=== PATIENT | female | born 1940 | race Caucasian/White ===

== ENCOUNTER → 2017-03-17 | Outpatient (CLI) | payer MEDICARE ==
[~2017-03-17] MED LIST: AMLO10TA PO; AMLO1TAB PO; AMLO5TAB2 PO; ASP325TEC PO; ASP81CT PO; ASP81TEC PO; ASPI-892 PO; ATOR40TA PO; BCL10T GT; CADUET; CEPH500C PO; CETI5TAB25 PO; CLN.1T PO; CLOP75TA PO; CYCL5TAB PO; EZET10TA5 PO; FAMO20TA5 PO; FEXO-14 PO; FEXO180T84 PO; FEXO60TA PO; FURO20TA4 PO; GABA-486 PO; HYDR-2890 PO; HYDR-3876 PO; ISM30TCR PO; METO-333 PO; METO50TA2 PO; MTP25TSR; MTP25TSR PO; NITR0.4T SL; OMEP20CA6 PO; PANT20TA2 PO; PNT40TEC PO; POTA10CA43 PO; RAMI10TA PO; SCOP1PAT TD; SIMV20TA3 PO; SPIR25TA3 PO; VNL37.5T PO; VNL75CCR PO; ZLP5T PO
--- NOTE | 2017-03-17 11:49 | Diagnostic Imaging Report ---
INDICATION: 10 days productive cough. Exam compared to 11/29/2011. The heart size stable. There is some prominence of the central pulmonary vascularity similar to the previous exam. There is some prominence of the perihilar interstitial lung markings however more pronounced. No mary alveolar consolidation. No effusion or pneumothorax. Pacemaker device and post sternotomy stable. IMPRESSION: Upper limits heart size and prominence of the vascularity, similar to the prior. Perihilar interstitial lung markings and airway thickening have increased and may reflect a reactive airway disease or bronchitis or other interstitial inflammatory process. No effusion, pneumothorax or alveolar consolidation. Dictated by: Dictated on workstation # [id number]
== END ==
LOC: RAD 11:10
PROVIDERS: ATTEND Family Medicine
DX: R91.8 Other nonspecific abnormal finding of lung field (principal)
CPT/HCPCS: 71020

== ENCOUNTER → 2017-04-01 | Outpatient (CLI) | payer MEDICARE ==
--- NOTE | 2017-04-02 12:11 | Diagnostic Imaging Report ---
Bilateral screening mammogram 2D views with tomosynthesis. The current study was also evaluated with a Computer Aided Detection (CAD) system. INDICATION: Screening. No current complaints stated on the questionnaire. COMPARISON: 12/11/15 FINDINGS: The breasts are composed of heterogeneously dense parenchyma which may decrease mammographic sensitivity. Pacemaker projecting over the left axillary region is seen. Numerous benign-appearing calcifications are noted. Allowing for technique and positional differences, no suspicious change is seen. IMPRESSION: Dense breasts with no definite change. ACR BI-RADS Category 2: Benign findings. Result letter will be mailed to the patient. Note: At least 10% of breast cancer is not imaged by mammography. Dictated by: Dictated on workstation # [id number]
== END ==
LOC: RAD 10:53
PROVIDERS: ATTEND Nurse Practitioner Family
DX: Z12.31 Encounter for screening mammogram for malignant neoplasm of breast (principal)

== ENCOUNTER → 2017-04-16 | Outpatient (CLI) | payer MEDICARE ==
--- NOTE | 2017-04-16 10:57 | Diagnostic Imaging Report ---
INDICATION: SHORTNESS OF BREATH COMPARISON: 03/17/2017 FINDINGS: Frontal and lateral views of the chest demonstrate normal heart size and pulmonary vascularity. The lungs are clear. There are no signs of infiltrate, pleural effusions or pneumothoraces. The visualized osseous structures show no acute abnormalities. Sternotomy wires and left-sided dual-lead pacemaker is noted. IMPRESSION: 1. No acute process. No signs of infiltrates, effusions or pneumothoraces. Dictated by: Dictated on workstation # [id number]
== END ==
LOC: RAD 09:57
PROVIDERS: ATTEND Nurse Practitioner Family
DX: R06.02 Shortness of breath (principal)
CPT/HCPCS: 71020

== ENCOUNTER → 2017-04-16 | Outpatient (CLI) | payer MEDICARE ==
[2017-04-16 09:16] LABS: MEAN PLATELET VOLUME 10.3 FL (7.4-10.4); RED BLOOD COUNT 4.66 10^6/uL (4.35-5.85); RED CELL DISTRIBUTION WIDTH 16.4 % (10.0-14.5); WHITE BLOOD COUNT 5.9 10^3/uL (4.3-11.0)
[2017-04-16 09:41] LABS: ALBUMIN 3.9 GM/DL (3.2-4.5); BILIRUBIN,TOTAL 0.8 MG/DL (0.1-1.0); CALCIUM 9.5 MG/DL (8.5-10.1); CREATININE SERUM 0.93 MG/DL (0.60-1.30); MAGNESIUM 1.9 MG/DL (1.8-2.4); POTASSIUM 3.7 MMOL/L (3.6-5.0); TOTAL PROTEIN 7.2 GM/DL (6.4-8.2)
[2017-04-16 10:00] LABS: THYROID STIMULATING HORMONE 1.45 UIU/ML (0.35-4.94)
== END ==
LOC: CARD 08:34
PROVIDERS: ATTEND Internal Medicine Cardiovascular Disease
DX: I10 Essential (primary) hypertension (principal); I44.2 Atrioventricular block, complete; R06.02 Shortness of breath; I97.190 Other postprocedural cardiac functional disturbances following cardiac surgery; Z88.2 Allergy status to sulfonamides
CPT/HCPCS: 36415; 80053; 83735; 84443; 85027; 93306

== ENCOUNTER → 2017-05-26 | Outpatient (CLI) | payer MEDICARE ==
[~2017-05-26] MED LIST changes: +CATHETER FLUSH 10 ML SYR IV PRN; +IOHEXOL 350 MG/ML 150 ML (OMNIPAQUE 350) VIAL IV ONE
[2017-05-26 11:01] LABS: CREATININE SERUM 0.96 MG/DL (0.60-1.30)
--- NOTE | 2017-05-26 11:54 | Diagnostic Imaging Report ---
INDICATION: Shortness of breath and bilateral leg pain. TECHNIQUE: Grayscale, color flow, and Duplex Doppler evaluation of the bilateral lower extremity deep venous systems was performed. FINDINGS: There is no evidence of right or left lower extremity DVT. Both lower extremity deep venous systems show normal compressibility with normal response to augmentation and Valsalva. No fluid collection or mass is detected. IMPRESSION: No evidence of right or left lower extremity DVT. Dictated by: Dictated on workstation # [id number]
--- NOTE | 2017-05-26 12:27 | Diagnostic Imaging Report ---
PROCEDURE: CT angiography of the chest with contrast. TECHNIQUE: Multiple contiguous axial images were obtained through the chest after uneventful bolus administration of intravenous contrast. Reconstructed CTA MIP acquisitions were also performed. INDICATION: Shortness of air for three months. No prior studies are available for comparison. Evaluation of the pulmonary arterial system is without evidence of thromboembolism. The central, lobar and subsegmental pulmonary arterial branches are without evidence of a filling defect. There is some ectasia of the ascending thoracic aorta measuring 4.2 cm AP x 3.9 cm transverse. No dissection is identified. The heart does appear enlarged. No pericardial or pleural fluid is identified. No axillary lymphadenopathy is seen. No hilar lymphadenopathy is identified. Small mediastinal lymph nodes are present. A left chest wall cardiac pacemaker is noted. No infiltrates, nodules or masses are detected. The upper abdomen is unremarkable. IMPRESSION: No evidence of pulmonary embolism. Dictated by: Dictated on workstation # [id number]
== END ==
LOC: RAD 09:51
PROVIDERS: ATTEND Nurse Practitioner Family
DX: R06.00 Dyspnea, unspecified (principal); M79.606 Pain in leg, unspecified
CPT/HCPCS: 36415; 71275; 82565; 84520; 93970

== ENCOUNTER → 2017-06-01 | Outpatient (CLI) | payer MEDICARE ==
[~2017-06-01] MED LIST changes: -CATHETER FLUSH 10 ML SYR IV PRN; -IOHEXOL 350 MG/ML 150 ML (OMNIPAQUE 350) VIAL IV ONE
--- NOTE | 2017-06-01 14:43 | Diagnostic Imaging Report ---
PROCEDURE: CT abdomen and pelvis without contrast. TECHNIQUE: Multiple contiguous axial images were obtained through the abdomen and pelvis without the use of intravenous contrast. INDICATION: Hematuria. FINDINGS: The previous CT abdomen/pelvis exam performed on 07/29/10 noted a 2.1 x 2.4 cm cyst along the superior pole of the right kidney. That suspected cyst now measures 2.4 x 3.0 cm. The kidneys are otherwise unremarkable. There is no sign of nephrolithiasis or urolithiasis and the kidneys do not seem to be obstructed. The urinary bladder is only partially filled and consequently difficult to assess. There is no obvious bladder abnormality evident. The uterus is surgically absent. There is no pelvic mass or free fluid collection noted. The appendix was visualized and is not abnormally thickened. The liver, spleen, pancreas, adrenals, gallbladder, aorta and inferior vena cava show no sign of an acute abnormality. The stomach is not well distended and consequently difficult to assess. The lung bases are clear. There is no obvious breast mass. The bone windows show no sign of a fracture or of a destructive lesion. There is degenerative disc and bony disease throughout the lower thoracic and lumbar spine. IMPRESSION: 1. There is no acute abnormality of the abdomen or pelvis. In particular, there is no abnormality to account for the patient's hematuria. 2. The suspected cyst along the lateral aspect of the superior pole of the right kidney does measure somewhat larger than on the prior study. This suspected cyst still has a generally benign appearance. Even so, ultrasound would be recommended for further evaluation.. Dictated by: Dictated on workstation # [id number]
== END ==
LOC: RAD 11:26
PROVIDERS: ATTEND Urology
DX: R31.9 Hematuria, unspecified (principal); Z90.710 Acquired absence of both cervix and uterus
CPT/HCPCS: 74176

== ENCOUNTER 2017-06-08 19:51 | Outpatient (CLI) | payer MEDICARE | END 2017-06-09 06:15 | disposition home or self-care (01) | LOC: SLEEP 19:51 | PROVIDERS: ATTEND Nurse Practitioner Family | DX: G47.10 Hypersomnia, unspecified (principal); R06.83 Snoring; I10 Essential (primary) hypertension; Z95.0 Presence of cardiac pacemaker | CPT/HCPCS: 95810 ==

== ENCOUNTER → 2017-06-15 | Outpatient (CLI) | payer MEDICARE ==
[~2017-06-15] MED LIST changes: +RT-ALBUTEROL SULF 2.5 MG/3 ML PRE-MIX VIAL INH ONE
== END ==
LOC: RT 07:33
PROVIDERS: ATTEND Nurse Practitioner Family
DX: R06.00 Dyspnea, unspecified (principal); J30.2 Other seasonal allergic rhinitis
CPT/HCPCS: 94060; 94726; 94729

== ENCOUNTER → 2017-06-23 | Outpatient (CLI) | payer MEDICARE ==
[~2017-06-23] MED LIST changes: -RT-ALBUTEROL SULF 2.5 MG/3 ML PRE-MIX VIAL INH ONE
== END ==
LOC: PULM 10:35
PROVIDERS: ATTEND Nurse Practitioner Family
DX: R06.00 Dyspnea, unspecified (principal); M79.606 Pain in leg, unspecified

== ENCOUNTER → 2017-08-12 | Outpatient (CLI) | payer MEDICARE ==
--- NOTE | 2017-08-12 14:03 | Diagnostic Imaging Report ---
CLINICAL INDICATION: Patient with 4 nosebleeds in last 2 months and patient is seeing spots, coughing up blood yesterday and several sinus infections. EXAM: Axial maxillofacial CT scan performed without IV contrast with coronal reformations. COMPARISON: None. FINDINGS: PARANASAL SINUSES: FRONTAL: Unremarkable. ETHMOID: Unremarkable. MAXILLARY: Unremarkable. SPHENOID: Unremarkable. OTHER PARANASAL SINUS FINDINGS: There is max bullosa of both middle nasal turbinates (right side more than the left). The bilateral ostiomeatal unit regions are patent. NASAL SEPTUM: Relatively midline. No significant bony spurs. VISUALIZED TEMPORAL BONE STRUCTURES: Unremarkable. BONY STRUCTURES: Unremarkable. EXTRACRANIAL SOFT TISSUE/ ORBITS: Unremarkable. IMPRESSION: 1: There is no significant paranasal sinus disease. 2: There is max bullosa of both middle nasal turbinates. Dictated by: Dictated on workstation # [id number]
== END ==
LOC: RAD 13:21
PROVIDERS: ATTEND Family Medicine
DX: J34.89 Other specified disorders of nose and nasal sinuses (principal); J32.9 Chronic sinusitis, unspecified; R04.0 Epistaxis; R04.2 Hemoptysis
CPT/HCPCS: 70486

== ENCOUNTER 2017-12-08 09:00 | Outpatient (RCR) | payer MEDICARE ==
[2017-10-20 09:00] VITALS: BP 140/70
[2017-10-20 10:20] VITALS: BP 146/68
[2017-10-22 09:17] VITALS: BP 119/70
[2017-10-22 09:50] VITALS: BP 120/75
[2017-10-27 09:00] VITALS: BP 114/70
[2017-10-27 10:00] VITALS: BP 120/60
[2017-10-29 09:00] VITALS: BP 125/40
[2017-10-29 09:50] VITALS: BP 128/50
[2017-11-03 08:55] VITALS: BP 120/50
[2017-11-10 09:00] VITALS: BP 130/76
[2017-11-10 10:00] VITALS: BP 121/50
[2017-11-12 09:00] VITALS: BP 122/70
[2017-11-12 10:00] VITALS: BP 130/70
[2017-11-17 09:00] VITALS: BP 125/122
[2017-11-17 10:00] VITALS: BP 122/40
[2017-11-19 08:57] VITALS: BP 150/160
[2017-11-19 09:00] VITALS: BP 150/60
[2017-11-24 09:00] VITALS: BP 138/60
[2017-11-24 09:53] VITALS: BP 110/50
[2017-11-26 09:00] VITALS: BP 142/50
[2017-11-26 10:00] VITALS: BP 145/70
[2017-12-03 08:58] VITALS: BP 122/70
[2017-12-03 09:00] VITALS: BP 122/70
[2017-12-03 10:00] VITALS: BP 116/70
[2017-12-08 09:00] VITALS: BP 100/70
[2017-12-08 10:00] VITALS: BP 125/80
== END 2018-01-20 | disposition home or self-care (01) ==
LOC: PULM 09:00
PROVIDERS: ATTEND Nurse Practitioner Family
DX: J98.4 Other disorders of lung (principal)

== ENCOUNTER → 2019-04-04 | Outpatient (CLI) | payer MEDICARE ==
--- NOTE | 2019-04-04 10:38 | Diagnostic Imaging Report ---
INDICATION: Screening. TECHNIQUE: The current study was also evaluated with a Computer Aided Detection (CAD) system. 3D Tomographic imaging was also performed. COMPARISON: 04/01/2017, 12/11/2015, 05/18/2015, and 11/14/2013. FINDINGS: The fibroglandular tissue is heterogeneously dense bilaterally. There are scattered benign type calcifications. There is no dominant mass, spiculated lesion, or suspicious calcification identified. The skin, nipples, and axillae are unremarkable. IMPRESSION: Benign findings. ACR BI-RADS Category 2: Benign findings. Result letter will be mailed to the patient. Note: At least 10% of breast cancer is not imaged by mammography. Dictated by: Dictated on workstation # [id number]
== END ==
LOC: RAD 08:15
PROVIDERS: ATTEND Family Medicine
DX: Z12.31 Encounter for screening mammogram for malignant neoplasm of breast (principal)
CPT/HCPCS: 77067

== ENCOUNTER → 2019-10-06 | Outpatient (CLI) | payer MEDICARE ==
--- NOTE | 2019-10-06 17:57 | Diagnostic Imaging Report ---
INDICATION: Palpable lump right breast. CORRELATION is made with prior mammograms from 04/04/2019 and 04/01/2017. TECHNIQUE: Unilateral right 2-D and 3-D diagnostic mammography was performed with CAD. FINDINGS: Right breast is heterogeneously dense, limiting the sensitivity of mammography. A BB marker was placed at the area of palpable abnormality in the upper and slightly inner right breast. Dense tissue is identified at this location. No discrete mass is identified. There are benign calcifications. No malignant appearing microcalcifications are seen. The right axilla is unremarkable. IMPRESSION: BI-RADS 0 There is dense tissue at the area of palpable abnormality in the upper right breast without discrete mass. Interrogation of this area with ultrasound is recommended and will be performed today. ACR BI-RADS Category 0: Incomplete. (Needs additional imaging evaluation). Result letter will be mailed to the patient. Note: At least 10% of breast cancer is not imaged by mammography. Dictated by: Dictated on workstation # [id number]
--- NOTE | 2019-10-06 18:04 | Diagnostic Imaging Report ---
INDICATION: Palpable lump right breast. CORRELATION is made with diagnostic mammogram earlier the same day. Sonographic interrogation of the area of palpable abnormality right breast was performed. There is a hypoechoic somewhat ill-defined solid appearing mass at the 12:30 location of the right breast, 5 cm from the nipple. This measures 1.9 x 1.2 x 1.9 cm. No significant internal vascularity is seen. There is some vascularity along the margins. Evaluation of the right axilla shows no abnormally enlarged lymph nodes. IMPRESSION: Hypoechoic solid appearing mass 12:30 location right breast, 5 cm from the nipple. This corresponds to the area of palpable abnormality. Features are concerning for a breast neoplasm and tissue sampling is recommended. This would be amenable to ultrasound-guided core biopsy. BI-RADS Category 4 ACR BI-RADS Category 4: Suspicious abnormality. Result letter will be mailed to the patient. Note: At least 10% of breast cancer is not imaged by mammography. Dictated by: Dictated on workstation # [id number]
== END ==
LOC: RAD 13:10
PROVIDERS: ATTEND Nurse Practitioner Family
DX: N63.10 Unspecified lump in the right breast, unspecified quadrant (principal)
CPT/HCPCS: 76642; 77065; G0279

== ENCOUNTER → 2019-11-04 | Outpatient (CLI) | payer MEDICARE ==
[2019-11-04 18:13] LABS: BASOPHILS % (AUTO) 0 % (0-10); EOSINOPHILS # (AUTO) 0.1 10^3/uL (0.0-0.3); EOSINOPHILS % (AUTO) 1 % (0-10); HEMATOCRIT 41 % (35-52); HEMOGLOBIN 13.3 G/DL (11.5-16.0); LYMPHOCYTES # (AUTO) 3.2 X 10^3 (1.0-4.0); LYMPHOCYTES % (AUTO) 34 % (12-44); MEAN CORPUSCULAR HEMOGLOBIN 29 PG (25-34); MEAN CORPUSCULAR HGB CONC 33 G/DL (32-36); MEAN CORPUSCULAR VOLUME 89 FL (80-99); MEAN PLATELET VOLUME 11.4 FL (7.4-10.4); MONOCYTES # (AUTO) 0.6 X 10^3 (0.0-1.0); MONOCYTES % (AUTO) 7 % (0-12); NEUTROPHILS # (AUTO) 5.6 X 10^3 (1.8-7.8); NEUTROPHILS % (AUTO) 58 % (42-75); PLATELET COUNT 251 10^3/uL (130-400); RED CELL DISTRIBUTION WIDTH 14.5 % (10.0-14.5); WHITE BLOOD COUNT 9.5 10^3/uL (4.3-11.0)
[2019-11-04 18:17] LABS: ALBUMIN 3.9 GM/DL (3.2-4.5); POTASSIUM 3.8 MMOL/L (3.6-5.0)
[2019-11-04 18:19] LABS: TOTAL PROTEIN 6.9 GM/DL (6.4-8.2)
[2019-11-04 18:21] LABS: BILIRUBIN,TOTAL 0.3 MG/DL (0.1-1.0)
[2019-11-04 18:23] LABS: CREATININE SERUM 1.13 MG/DL (0.60-1.30)
== END ==
LOC: LAB 17:12
DX: Z11.59 Encounter for screening for other viral diseases (principal); C50.911 Malignant neoplasm of unspecified site of right female breast; Z20.828 Contact with and (suspected) exposure to other viral communicable diseases
CPT/HCPCS: 80053; 85025; U0002; 36415; 87635

== ENCOUNTER → 2019-11-24 | Outpatient (CLI) | payer MEDICARE | LOC: LABNPT 08:13 | PROVIDERS: ATTEND Internal Medicine Medical Oncology | DX: Z20.828 Contact with and (suspected) exposure to other viral communicable diseases (principal) | CPT/HCPCS: 87635 ==

== ENCOUNTER → 2019-12-16 | Outpatient (CLI) | payer MEDICARE | LOC: LABNPT 07:54 | PROVIDERS: ATTEND Internal Medicine Medical Oncology | DX: Z11.59 Encounter for screening for other viral diseases (principal); Z20.828 Contact with and (suspected) exposure to other viral communicable diseases | CPT/HCPCS: 87635 ==

== ENCOUNTER → 2020-01-06 | Outpatient (CLI) | payer MEDICARE | LOC: LABNPT 07:50 | PROVIDERS: ATTEND Internal Medicine Medical Oncology | DX: Z20.828 Contact with and (suspected) exposure to other viral communicable diseases (principal) | CPT/HCPCS: 87635 ==

== ENCOUNTER → 2020-02-03 | Outpatient (CLI) | payer MEDICARE | LOC: LABNPT 08:47 | PROVIDERS: ATTEND Family Medicine | DX: Z11.59 Encounter for screening for other viral diseases (principal) | CPT/HCPCS: 87635 ==

== ENCOUNTER → 2021-06-14 11:51 | Day surgery (SDC) | payer MEDICARE ==
--- NOTE | 2019-10-13 10:29 | Diagnostic Imaging Report ---
INDICATION: Right breast mass. Patient is status post right breast biopsy. A unilateral right 2D mammography was performed after the patient underwent right breast ultrasound biopsy. Correlation is made with recent screening and diagnostic study from 10/06/2019. A marker clip in the upper slightly inner right breast is noted, status post biopsy. There are scattered benign calcifications. IMPRESSION: 1. Clip is identified within the area of density noted on diagnostic mammography in the upper and slightly inner right breast. Pathology results are currently pending. Dictated by: Dictated on workstation # [id number]
--- NOTE | 2019-10-13 11:23 | Diagnostic Imaging Report ---
INDICATION: Right breast mass. Patient presents for ultrasound-guided biopsy. Patient was brought to the procedure room, placed on table in the supine position. Ultrasound imaging of the right breast was performed to evaluate appropriate entry site. The right breast was then prepped and draped in the usual sterile fashion. Small amount of 1% lidocaine was utilized for local anesthesia. A total of 3 core biopsies were obtained of the hypoechoic mass at the 12:30 location of the right breast, 5 cm from the nipple. A 14-gauge Achieve needle was utilized. A marker clip was then deployed within the lesion. Hemostasis was obtained using manual compression. Patient tolerated the procedure well and left the Department in stable condition. IMPRESSION: Successful ultrasound-guided core biopsy hypoechoic mass right breast 12:30 location. Pathology results are currently pending. Dictated by: Dictated on workstation # [id number]
[~2021-06-14] VITALS: Ht 154.9 cm; Wt 70.9 kg
[~2021-06-14 11:51] MED LIST changes: +LIDOCAINE 1% INJ 20 ML VIAL INJ ONE; +LIDOCAINE 1% INJ 20 ML VIAL ONE
== END | disposition home or self-care (01) ==
LOC: RAD 10-13 08:33
PROVIDERS: ATTEND Nurse Practitioner Family
DX: C50.211 Malignant neoplasm of upper-inner quadrant of right female breast (principal)
CPT/HCPCS: 19083; 77065; 88305; 88360; G0279

== ENCOUNTER 2021-10-30 10:59 | Emergency (ER) | payer MEDICARE ==
[~2021-10-30] VITALS: Ht 152 cm; Wt 72.0 kg
[~2021-10-30 10:59] MED LIST changes: -LIDOCAINE 1% INJ 20 ML VIAL INJ ONE; -LIDOCAINE 1% INJ 20 ML VIAL ONE
--- NOTE | 2021-10-30 11:14 | ED Chest Pain ---
General Chief Complaint: Chest Pain Stated Complaint: DIZZINESS Source: patient Exam Limitations: no limitations History of Present Illness Date Seen by Provider: Oct 30, 2021 Time Seen by Provider: 11:14 Allergies and Home Medications Allergies Coded Allergies: Sulfa (Sulfonamide Antibiotics) (Verified Allergy, Mild, 07/17/15) Patient Home Medication List Amlodipine Besylate (Amlodipine Besylate) 10 Mg Tablet, 10 MG PO DAILY, (Reported) Entered as Reported by: JOSELUIS VILLARREAL on 10/22/14 0949 Aspirin (Aspirin Ec Tab) 81 Mg Tabec, 81 MG PO DAILY, (Reported) Entered as Reported by: JESSICA HORNE on 10/23/14 0840 Atorvastatin Calcium (Lipitor) 40 Mg Tablet, 40 MG PO HS, (Reported) Entered as Reported by: MELVINA COSTELLO on 10/22/14 0530 Baclofen (Lioresal Tablet) 10 Mg Tab, 10 MG GT TID PRN for SPASMS Prescribed by: BETHANY VENEGAS on 11/13/14 1214 Cyclobenzaprine Hcl (Cyclobenzaprine Hcl) 5 Mg Tablet, 5 MG PO BID, (Reported) Entered as Reported by: KASI SALAMANCA on 09/28/08 1742 Fexofenadine Hcl (Neva Allergy) 180 Mg Tablet, 180 MG PO DAILY, (Reported) Entered as Reported by: JOSELUIS VILLARREAL on 10/22/14 0953 Furosemide (Furosemide) 20 Mg Tablet, 20 MG PO DAILY, (Reported) Entered as Reported by: JESSICA BAJWA on 09/28/08 1729 Gabapentin (Gabapentin) 100 Mg Capsule, 100 MG PO TID, (Reported) Entered as Reported by: MELVINA COSTELLO on 10/22/14 0530 Hydrocodone/Acetaminophen (Lorcet Hd 10-325 mg Tablet) 1 Each Tablet, 1 TAB PO Q4H Prescribed by: BETHANY VENEGAS on 11/13/14 1214 Metoprolol Tartrate (Metoprolol Tartrate) 50 Mg Tablet, 50 MG PO BID, (Reported) Entered as Reported by: JOSELUIS VILLARREAL on 10/22/14 0957 Nitroglycerin (Nitroquick) 0.4 Mg Tab.subl, 0.4 MG SL UD PRN for CHEST PAIN, (Reported) Entered as Reported by: JESSICA HORNE on 10/23/14 0900 Pantoprazole Sod (Protonix Tab) 40 Mg Tab, 40 MG PO DAILY, (Reported) Entered as Reported by: MICHELLE MARIN on 11/16/11 0816 Ramipril (Altace) 10 Mg Tablet, 10 MG PO HS, (Reported) Entered as Reported by: JESSICA BAJWA on 09/28/08 1727 Spironolactone (Spironolactone) 25 Mg Tablet, 25 MG PO DAILY, (Reported) Entered as Reported by: JOSELUIS VILLARREAL on 10/22/14 1000 Venlafaxine Hcl (Effexor) 37.5 Mg Tablet, 37.5 MG PO BID, (Reported) Entered as Reported by: KALLIE ORTIZ on 08/08/10 2340 Past Gqyeaoy-Onkvmc-Gxnpzf Hx Immunizations Up To Date Tetanus Booster (TDap): Unknown Past Medical History Hysterectomy, Open Heart Surgery Reproductive Disorders: No Female Reproductive Disorders: Denies Hiatal Hernia, Irritable Bowel Degenerate Disk Disease, Arthritis, Fibromyalgia, Chronic Back Pain Cataract Loss of Vision: Denies Hearing Impairment: Denies Skin, Melanoma, Oral Anxiety, Depression Family Medical History CABG 19 FATHER, G8 BROTHER G8 SISTER G8 SISTER, Cardiovascular disease 19 FATHER, G8 SISTER, , Onset:Unknown FH: back pain 19 FATHER, 19 MOTHER, G8 BROTHER G8 SISTER FH: brain tumor G8 SISTER, FH: chronic pain FH: melanoma G8 BROTHER G8 SISTER FH: scoliosis 19 MOTHER, FHx: liver disease 19 MOTHER, Hypertension 19 FATHER, Myocardial infarction SON, Physical Exam Vital Signs Vital Signs - First Documented 10/30/21 11:03 Pulse 68 Resp 18 B/P (MAP) 144/82 (102) Pulse Ox 99 Capillary Refill : Height, Weight, BMI Height: 5'2.00" Weight: 182lbs. 0.6oz. 81.114824hk; 29.54 BMI Method:Stated Progress/Results/Core Measures Results/Orders Lab Results Laboratory Tests Test 10/30/21 11:20 Range/Units White Blood Count 7.2 4.3-11.0 10^3/uL Red Blood Count 4.78 3.80-5.11 10^6/uL Hemoglobin 13.2 11.5-16.0 g/dL Hematocrit 42 35-52 % Mean Corpuscular Volume 87 80-99 fL Mean Corpuscular Hemoglobin 28 25-34 pg Mean Corpuscular Hemoglobin Concent 32 32-36 g/dL Red Cell Distribution Width 15.4 H 10.0-14.5 % Platelet Count 269 130-400 10^3/uL Mean Platelet Volume 10.4 9.0-12.2 fL Immature Granulocyte % (Auto) 0 % Neutrophils (%) (Auto) 61 42-75 % Lymphocytes (%) (Auto) 26 12-44 % Monocytes (%) (Auto) 9 0-12 % Eosinophils (%) (Auto) 3 0-10 % Basophils (%) (Auto) 0 0-10 % Neutrophils # (Auto) 4.4 1.8-7.8 10^3/uL Lymphocytes # (Auto) 1.9 1.0-4.0 10^3/uL Monocytes # (Auto) 0.7 0.0-1.0 10^3/uL Eosinophils # (Auto) 0.2 0.0-0.3 10^3/uL Basophils # (Auto) 0.0 0.0-0.1 10^3/uL Immature Granulocyte # (Auto) 0.0 0.0-0.1 10^3/uL Prothrombin Time 13.1 12.2-14.7 SEC INR Comment 1.0 0.8-1.4 Activated Partial Thromboplast Time 27 24-35 SEC D-Dimer 1.63 H 0.00-0.49 UG/ML Sodium Level 139 135-145 MMOL/L Potassium Level 3.9 3.6-5.0 MMOL/L Chloride Level 99 98-107 MMOL/L Carbon Dioxide Level 27 21-32 MMOL/L Anion Gap 13 5-14 MMOL/L Blood Urea Nitrogen 17 7-18 MG/DL Creatinine 1.19 0.60-1.30 MG/DL Estimat Glomerular Filtration Rate 47 BUN/Creatinine Ratio 14 Glucose Level 167 H 70-105 MG/DL Calcium Level 10.0 8.5-10.1 MG/DL Corrected Calcium 9.8 8.5-10.1 MG/DL Magnesium Level 1.8 1.6-2.4 MG/DL Total Bilirubin 0.6 0.1-1.0 MG/DL Aspartate Amino Transf (AST/SGOT) 23 5-34 U/L Alanine Aminotransferase (ALT/SGPT) 22 0-55 U/L Alkaline Phosphatase 95 40-136 U/L Total Creatine Kinase 58 29-168 U/L Creatine Kinase MB 0.9 <6.6 NG/ML Myoglobin 52.4 10.0-92.0 NG/ML Troponin I < 0.028 <0.028 NG/ML B-Type Natriuretic Peptide 69.9 <100.0 PG/ML Total Protein 7.2 6.4-8.2 GM/DL Albumin 4.2 3.2-4.5 GM/DL My Orders Orders - HERBERTH SEWELL DIRECTOR PATIENT ACCOUNTING Cbc With Automated Diff (10/30/21 11:14) Magnesium (10/30/21 11:14) Chest 1 View, Ap/Pa Only (10/30/21 11:14) Comprehensive Metabolic Panel (10/30/21 11:14) Myoglobin Serum (10/30/21 11:14) Protime With Inr (10/30/21 11:14) Partial Thromboplastin Time (10/30/21 11:14) O2 (10/30/21 11:14) Monitor-Rhythm Ecg Trace Only (10/30/21 11:14) Ed Iv/Invasive Line Start (10/30/21 11:14) Creatine Kinase (10/30/21 11:14) Creatine Kinase Mb (10/30/21 11:14) Bnp Boris (10/30/21 11:14) Fibrin Degradation Products (10/30/21 11:14) Troponin I [place] (10/30/21 11:14) Aspirin Chewable Tablet (Baby Aspirin Ch (10/30/21 11:15) Ct Angio Chest W (10/30/21 12:27) Ns Iv 500 Ml (Sodium Chloride 0.9%) (10/30/21 12:30) Iohexol Injection (Omnipaque 350 Mg/Ml 1 (10/30/21 12:45) Received Contrast (Hold Metformin- Contr (10/30/21 12:45) Ns (Ivpb) (Sodium Chloride 0.9% Ivpb Bag (10/30/21 12:45) Sodium Chloride Flush (Catheter Flush Sy (10/30/21 12:45) Medications Given in ED Current Medications Medications Dose Ordered Sig/[place] Route Start Time Stop Time Status Last Admin Dose Admin Aspirin 243 mg ONCE ONCE PO 10/30/21 11:15 10/30/21 11:16 DC 10/30/21 12:09 243 MG Iohexol 100 ml ONCE ONCE IV 10/30/21 12:45 10/30/21 12:46 DC 10/30/21 13:40 67 ML Sodium Chloride 10 ml NEEDED PRN IV 10/30/21 12:45 10/30/21 13:40 10 ML Sodium Chloride 100 ml ONCE ONCE IV 10/30/21 12:45 10/30/21 12:46 DC 10/30/21 13:40 80 ML Sodium Chloride 500 ml @ 0 mls/hr Q0M ONCE IV 10/30/21 12:30 10/30/21 12:31 DC 10/30/21 12:41 500 MLS/HR Vital Signs/I&O 10/30/21 11:03 Pulse 68 Resp 18 B/P (MAP) 144/82 (102) Pulse Ox 99 Departure Impression Primary Impression: Vertigo Disposition: 01 HOME, SELF-CARE Condition: Improved Departure-Patient Inst. Decision time for Depature: 14:11 Referrals: PRETTY KRISHNAN MD (PCP/Family) Primary Care Physician Patient Instructions: Dizziness, Nonvertigo, (DC), Labyrinthitis Add. Discharge Instructions: Plan: 1. Avoid bending over at this may worsen your symptoms. Lower yourself by your legs and knees instead of bending with your back. 2. Have follow up with your primary care provider in 3-5 days. 3. Rest. May apply ice/heat 20 minutes at a time for discomfort. 4. Apply Voltaren ointment up to four times a day to your neck and shoulders. 5. Return for any new, concerning, or worsening symptoms. All discharge instructions reviewed with patient and/or family. Voiced understanding. Scripts Diclofenac Sodium (Voltaren Arthritis Pain) 1 % Gel..gram. 1 APPLIC TP QID for 7 Days, #20 GM 0 Refills Prov: HERBERTH SEWELL DIRECTOR PATIENT ACCOUNTING 10/30/21 Cyclobenzaprine HCl (Cyclobenzaprine HCl) 10 Mg Tablet 10 MG PO HS, #30 TAB 0 Refills Prov: HERBERTH SEWELL DIRECTOR PATIENT ACCOUNTING 10/30/21 HERBERTH SEWELL DIRECTOR PATIENT ACCOUNTING Oct 30, 2021 11:14
[2021-10-30] MEDS ORDERED: ASPIRIN 81 MG CHEW (CHILDREN'S ASA) PO ONE (11:15)
[2021-10-30 11:38] LABS: BASOPHILS % (AUTO) 0 % (0-10); EOSINOPHILS # (AUTO) 0.2 10^3/uL (0.0-0.3); EOSINOPHILS % (AUTO) 3 % (0-10); HEMATOCRIT 42 % (35-52); HEMOGLOBIN 13.2 g/dL (11.5-16.0); LYMPHOCYTES # (AUTO) 1.9 10^3/uL (1.0-4.0); LYMPHOCYTES % (AUTO) 26 % (12-44); MEAN CORPUSCULAR HEMOGLOBIN 28 pg (25-34); MEAN CORPUSCULAR HGB CONC 32 g/dL (32-36); MEAN CORPUSCULAR VOLUME 87 fL (80-99); MEAN PLATELET VOLUME 10.4 fL (9.0-12.2); MONOCYTES # (AUTO) 0.7 10^3/uL (0.0-1.0); MONOCYTES % (AUTO) 9 % (0-12); NEUTROPHILS # (AUTO) 4.4 10^3/uL (1.8-7.8); NEUTROPHILS % (AUTO) 61 % (42-75); PLATELET COUNT 269 10^3/uL (130-400); WHITE BLOOD COUNT 7.2 10^3/uL (4.3-11.0)
[2021-10-30 11:42] LABS: ALBUMIN 4.2 GM/DL (3.2-4.5); POTASSIUM 3.9 MMOL/L (3.6-5.0)
[2021-10-30 11:44] LABS: TOTAL PROTEIN 7.2 GM/DL (6.4-8.2)
[2021-10-30 11:46] LABS: BILIRUBIN,TOTAL 0.6 MG/DL (0.1-1.0)
[2021-10-30 11:48] LABS: CREATININE SERUM 1.19 MG/DL (0.60-1.30)
[2021-10-30 11:51] LABS: MAGNESIUM 1.8 MG/DL (1.6-2.4)
[2021-10-30 11:54] LABS: PROTHROMBIN TIME PATIENT 13.1 SEC (12.2-14.7)
[2021-10-30 11:58] LABS: CREATINE KINASE MB 0.9 NG/ML (<6.6)
--- NOTE | 2021-10-30 12:15 | Diagnostic Imaging Report ---
EXAMINATION: Portable erect AP chest at 11:58 AM. INDICATION: Chest pain. FINDINGS: The heart is stable in size when compared to the prior exam of 11/29/2011. The sternotomy wires, surgical clips, and left-sided pacemaker seen previously are again evident and no different. The lungs are generally clear. There is no sign of failure, pneumonia, or pleural effusion to indicate an acute abnormality. The mediastinum is not widened. The osseous structures are intact. IMPRESSION: There is evidence of prior cardiac surgery but there is no sign of an acute cardiopulmonary abnormality. Dictated by: Dictated on workstation # [id number]
[2021-10-30] MEDS ORDERED: NS IV 500 ML 500 ML IV ONE (12:30)
[2021-10-30] MEDS ORDERED: HOLD METFORMIN - RECEIVED CONTRAST 20 ML VIAL IV SCH (12:45)
[2021-10-30] MEDS ORDERED: CATHETER FLUSH 10 ML SYR IV PRN (12:45)
[2021-10-30] MEDS ORDERED: IOHEXOL 350 MG/ML 100 ML (OMNIPAQUE 350) VIAL IV ONE (12:45)
[2021-10-30] MEDS ORDERED: NS 100 ML (IVPB) BAG IV ONE (12:45)
--- NOTE | 2021-10-30 13:54 | Diagnostic Imaging Report ---
PROCEDURE: CT angiography Chest TECHNIQUE: After intravenous administration of contrast, thin section axial CT angiography of the chest was performed. 3D MIP reconstructions were made. All CT scans use one or more of the following dose optimizing techniques: automated exposure control, MA and/or KvP adjustment based on a patient size and exam type, or iterative reconstruction. INDICATION: Chest pain, elevated d-dimer COMPARISON: 05/26/2017 FINDINGS: Vasculature: No pulmonary emboli. There is reflux of contrast material into the IVC which can be seen with elevated right heart pressure. Stable ectasia of ascending aorta measuring approximately 3.8 cm. No aortic dissection. Heart and mediastinum: Visualized thyroid is normal. No supraclavicular, axillary, or intra-thoracic lymphadenopathy. Cardiomegaly status post CABG. Pleura: No pleural effusion or pneumothorax. Lungs and airway: No endoluminal lesion in the trachea or central bronchi. No pulmonary mass, nodule or consolidation. Upper abdomen: Allowing for the phase of contrast, no acute abnormality in the upper abdomen is seen. Musculoskeletal: No concerning osseous lesion. IMPRESSION: 1. No acute cardiopulmonary process. Specifically, no pulmonary emboli or acute aortic syndrome. 2. Imaging features suggest elevated right heart pressure. Dictated by: Dictated on workstation # [id number]
[2021-10-30] MEDS ORDERED: CYCL10TA25 PO (14:58)
[2021-10-30] MEDS ORDERED: DICL20GE TP (14:58)
[2021-10-30 15:08] VITALS: BP 122/71
== END 2021-10-30 15:09 | disposition home or self-care (01) ==
LOC: EDUNIT# 10:59 → ER 11:02
DX: R42 Dizziness and giddiness (principal)
CPT/HCPCS: 36415; 71045; 71275; 80053; 82550; 82553; 83735; 83874; 83880; 84484; 85025; 85379; 85610; 85730; 93005; 93041

== ENCOUNTER → 2022-07-25 | Outpatient (RCR) | payer MEDICARE ==
[~2022-07-25] MED LIST changes: +CYCL10TA25 PO; +DICL20GE TP
== END ==
LOC: CR 08:53
PROVIDERS: ATTEND Surgery
DX: I35.0 Nonrheumatic aortic (valve) stenosis (principal)
CPT/HCPCS: 93798

== ENCOUNTER 2022-08-13 09:38 | Emergency (ER) | payer MEDICARE ==
--- NOTE | 2022-08-13 09:48 | ED Dyspnea ---
General Chief Complaint: Cardiac/General Problems Stated Complaint: SOB | HBP History of Present Illness Date Seen by Provider: Aug 13, 2022 Time Seen by Provider: 09:48 Initial Comments 82-year-old female presents with just some generalized malaise. She reports that she has Had a little bit of a scratchy throat, some mild feeling like not feeling well with maybe a little bit of a cough or shortness of breath. Her blood pressures been kind of high but she was recently had her medications for blood pressure changed. That she had a recent aortic valve replacement at . She does not have any chest pain. No nausea or vomiting. Allergies and Home Medications Allergies Coded Allergies: Sulfa (Sulfonamide Antibiotics) (Verified Allergy, Mild, 07/17/15) Patient Home Medication List Home Medication List Reviewed: Yes Amlodipine Besylate (Amlodipine Besylate) 10 Mg Tablet, 10 MG PO DAILY, (Rep orted) Entered as Reported by: JOSELUIS VILLARREAL on 10/22/14 0949 Aspirin (Aspirin Ec Tab) 81 Mg Tabec, 81 MG PO DAILY, (Reported) Entered as Reported by: JESSICA HORNE on 10/23/14 0840 Atorvastatin Calcium (Lipitor) 40 Mg Tablet, 40 MG PO HS, (Reported) Entered as Reported by: MELVINA COSTELLO on 10/22/14 0530 Baclofen (Lioresal Tablet) 10 Mg Tab, 10 MG GT TID PRN for SPASMS Prescribed by: BETHANY VENEGAS on 11/13/14 1214 Cyclobenzaprine HCl (Cyclobenzaprine HCl) 10 Mg Tablet, 10 MG PO HS Prescribed by: HERBERTH SEWELL on 10/30/21 1458 Cyclobenzaprine Hcl (Cyclobenzaprine Hcl) 5 Mg Tablet, 5 MG PO BID, (Reported) Entered as Reported by: KASI SALAMANCA on 09/28/08 1742 Diclofenac Sodium (Voltaren Arthritis Pain) 1 % Gel..gram., 1 APPLIC TP QID Prescribed by: HERBERTH SEWELL on 10/30/21 1458 Fexofenadine Hcl (Neva Allergy) 180 Mg Tablet, 180 MG PO DAILY, (Reported) Entered as Reported by: JOSELUIS VILLARREAL on 10/22/14 0953 Furosemide (Furosemide) 20 Mg Tablet, 20 MG PO DAILY, (Reported) Entered as Reported by: JESSICA BAJWA on 09/28/08 1729 Gabapentin (Gabapentin) 100 Mg Capsule, 100 MG PO TID, (Reported) Entered as Reported by: MELVINA COSTELLO on 10/22/14 0530 Hydrocodone/Acetaminophen (Lorcet Hd 10-325 mg Tablet) 1 Each Tablet, 1 TAB PO Q4H Prescribed by: BETHANY VENEGAS on 11/13/14 1214 Metoprolol Tartrate (Metoprolol Tartrate) 50 Mg Tablet, 50 MG PO BID, (Reported) Entered as Reported by: JOSELUIS VILLARREAL on 10/22/14 0957 Nitroglycerin (Nitroquick) 0.4 Mg Tab.subl, 0.4 MG SL UD PRN for CHEST PAIN, (Reported) Entered as Reported by: JESSICA HORNE on 10/23/14 0900 Pantoprazole Sod (Protonix Tab) 40 Mg Tab, 40 MG PO DAILY, (Reported) Entered as Reported by: MICHELLE MARIN on 11/16/11 0816 Ramipril (Altace) 10 Mg Tablet, 10 MG PO HS, (Reported) Entered as Reported by: JESSICA BAJWA on 09/28/08 1727 Spironolactone (Spironolactone) 25 Mg Tablet, 25 MG PO DAILY, (Reported) Entered as Reported by: JOSELUIS VILLARREAL on 10/22/14 1000 Venlafaxine Hcl (Effexor) 37.5 Mg Tablet, 37.5 MG PO BID, (Reported) Entered as Reported by: KALLIE ORTIZ on 08/08/10 2340 Review of Systems Review of Systems Constitutional: No chills, No fever; malaise EENTM: see HPI Respiratory: cough Cardiovascular: no symptoms reported Gastrointestinal: no symptoms reported Genitourinary: no symptoms reported Musculoskeletal: no symptoms reported Skin: no symptoms reported Psychiatric/Neurological: No Symptoms Reported Past Owmpwcm-Icafua-Vdkjzl Hx Immunizations Up To Date Tetanus Booster (TDap): Unknown Past Medical History Surgery/Hospitalization HX: R SIDE MASTECTOMY, HEART STENTS, PACEMAKER, 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, MELANOMA ARMS Hysterectomy, Open Heart Surgery Reproductive Disorders: No Female Reproductive Disorders: Denies Hiatal Hernia, Irritable Bowel Degenerate Disk Disease, Arthritis, Fibromyalgia, Chronic Back Pain Cataract Loss of Vision: Denies Hearing Impairment: Denies Skin, Melanoma, Oral Anxiety, Depression Family Medical History CABG 19 FATHER, G8 BROTHER G8 SISTER G8 SISTER, Cardiovascular disease 19 FATHER, G8 SISTER, , Onset:Unknown FH: back pain 19 FATHER, 19 MOTHER, G8 BROTHER G8 SISTER FH: brain tumor G8 SISTER, FH: chronic pain FH: melanoma G8 BROTHER G8 SISTER FH: scoliosis 19 MOTHER, FHx: liver disease 19 MOTHER, Hypertension 19 FATHER, Myocardial infarction SON, Physical Exam Vital Signs Vital Signs - First Documented 08/13/22 08/13/22 09:40 10:00 Temp 36.0 Pulse 84 Resp 18 B/P (MAP) 204/113 (143) O2 Delivery Room Air Capillary Refill : Height, Weight, BMI Height: 5'2.00" Weight: 182lbs. 0.6oz. 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 Norm as Tested Skin: Normal Color, Warm/Dry Progress/Results/Core Measures Results/Orders Lab Results Laboratory Tests Test 08/13/22 09:50 08/13/22 10:40 Range/Units White Blood Count 6.6 4.3-11.0 10^3/uL Red Blood Count 4.40 3.80-5.11 10^6/uL Hemoglobin 12.1 11.5-16.0 g/dL Hematocrit 39 35-52 % Mean Corpuscular Volume 88 80-99 fL Mean Corpuscular Hemoglobin 28 25-34 pg Mean Corpuscular Hemoglobin Concent 31 L 32-36 g/dL Red Cell Distribution Width 15.2 H 10.0-14.5 % Platelet Count 225 130-400 10^3/uL Mean Platelet Volume 10.5 9.0-12.2 fL Immature Granulocyte % (Auto) 1 % Neutrophils (%) (Auto) 51 42-75 % Lymphocytes (%) (Auto) 37 12-44 % Monocytes (%) (Auto) 8 0-12 % Eosinophils (%) (Auto) 4 0-10 % Basophils (%) (Auto) 1 0-10 % Neutrophils # (Auto) 3.4 1.8-7.8 10^3/uL Lymphocytes # (Auto) 2.4 1.0-4.0 10^3/uL Monocytes # (Auto) 0.5 0.0-1.0 10^3/uL Eosinophils # (Auto) 0.3 0.0-0.3 10^3/uL Basophils # (Auto) 0.0 0.0-0.1 10^3/uL Immature Granulocyte # (Auto) 0.0 0.0-0.1 10^3/uL Sodium Level 141 135-145 MMOL/L Potassium Level 4.0 3.6-5.0 MMOL/L Chloride Level 106 98-107 MMOL/L Carbon Dioxide Level 24 21-32 MMOL/L Anion Gap 11 5-14 MMOL/L Blood Urea Nitrogen 17 7-18 MG/DL Creatinine 0.93 0.60-1.30 MG/DL Estimat Glomerular Filtration Rate 62 BUN/Creatinine Ratio 18 Glucose Level 107 H 70-105 MG/DL Calcium Level 9.1 8.5-10.1 MG/DL Corrected Calcium 9.3 8.5-10.1 MG/DL Total Bilirubin 0.5 0.1-1.0 MG/DL Aspartate Amino Transf (AST/SGOT) 18 5-34 U/L Alanine Aminotransferase (ALT/SGPT) 17 0-55 U/L Alkaline Phosphatase 115 40-136 U/L C-Reactive Protein High Sensitivity 0.18 0.00-0.50 MG/DL Total Protein 6.7 6.4-8.2 GM/DL Albumin 3.8 3.2-4.5 GM/DL Influenza Type A (RT-PCR) Not Detected Not Detecte Influenza Type B (RT-PCR) Not Detected Not Detecte SARS-CoV-2 RNA (RT-PCR) Not Detected Not Detecte My Orders Orders - KAREEN MATHURVOR L DO Cbc With Automated Diff (08/13/22 09:50) Comprehensive Metabolic Panel (08/13/22 09:50) Hs C Reactive Protein (08/13/22 09:50) Influenza A And B By Pcr (08/13/22 09:50) Covid 19 Inhouse Test (08/13/22 09:50) Chest Pa/Lat (2 View) (08/13/22 09:50) Vital Signs/I&O 08/13/22 08/13/22 08/13/22 09:40 10:00 11:55 Temp 36.0 36.0 Pulse 84 61 Resp 18 18 B/P (MAP) 204/113 (143) 162/67 O2 Delivery Room Air Room Air Progress Progress Note : Progress Note Patient's diagnostic studies were ordered reviewed and interpreted by me. Patient's labs showed no acute findings. Patient's blood pressure is slightly elevated in the 170s while here. I do suspect that she has a viral syndrome with a little bit of croaky throat mild cough. Discussed with her supportive care for that. Discussed patient with Dr. Hernández her primary care provider. We will increase her losartan to 100 mg daily and she is to call the office with her blood pressures on Thursday. She should follow-up with them for further recommendations. She is stable and discharged home Diagnostic Imaging Diagonstic Imaging: Xray Plain Films/CT/US/NM/MRI: chest Comments Date of Exam:08/13/22 CHEST PA/LAT (2 VIEW) CLINICAL INDICATIONS: Patient with cough. EXAM: Chest x-ray PA and lateral views. COMPARISON: Chest x-ray dated 10/30/2021. FINDINGS: Lungs/pleura: Lungs are clear. There is no pneumothorax. There is no pleural effusion. Mediastinum: Unremarkable. Pulmonary vasculature: Unremarkable. Heart: Stable cardiomegaly. Again seen postoperative changes to the chest related to CABG with interval valvuloplasty changes. Cardiac pacemaker again seen overlying left chest with leads appearing intact. Bones/extrathoracic soft tissue: There are hypertrophic spurs involving the thoracic spine. There are multiple surgical clips overlying the right axillary region. IMPRESSION: 1: There is no radiographic evidence of acute cardiopulmonary process. There is no lung infiltrate. 2: There is cardiomegaly with no significant pulmonary vascular congestion. 3: There are postop changes to the chest, as described above. Reviewed: Reviewed by Me, Reviewed/Discussed Departure Impression Primary Impression: Hypertension Qualified Codes: I10 - Essential (primary) hypertension Disposition: HOME, SELF-CARE Condition: Stable Departure-Patient Inst. Referrals: PRETTY HERNÁNDEZ MD (PCP/Family) Primary Care Physician Patient Instructions: High Blood Pressure in Adults, VIRAL SYNDROME Add. Discharge Instructions: Please increase your losartan to 100 mg daily[address] Please call Dr. Hernández's office on Thursday with your blood pressure readings. Follow-up with her sooner if needed. Return to ER with any concerns All discharge instructions reviewed with patient and/or family. Voiced understanding. GABRIELA MATHUR DO Aug 13, 2022 09:48
[2022-08-13 10:06] LABS: BASOPHILS % (AUTO) 1 % (0-10); EOSINOPHILS # (AUTO) 0.3 10^3/uL (0.0-0.3); EOSINOPHILS % (AUTO) 4 % (0-10); HEMATOCRIT 39 % (35-52); HEMOGLOBIN 12.1 g/dL (11.5-16.0); LYMPHOCYTES # (AUTO) 2.4 10^3/uL (1.0-4.0); LYMPHOCYTES % (AUTO) 37 % (12-44); MEAN CORPUSCULAR HEMOGLOBIN 28 pg (25-34); MEAN CORPUSCULAR HGB CONC 31 g/dL (32-36); MEAN CORPUSCULAR VOLUME 88 fL (80-99); MEAN PLATELET VOLUME 10.5 fL (9.0-12.2); MONOCYTES # (AUTO) 0.5 10^3/uL (0.0-1.0); MONOCYTES % (AUTO) 8 % (0-12); NEUTROPHILS # (AUTO) 3.4 10^3/uL (1.8-7.8); NEUTROPHILS % (AUTO) 51 % (42-75); PLATELET COUNT 225 10^3/uL (130-400); WHITE BLOOD COUNT 6.6 10^3/uL (4.3-11.0)
[2022-08-13 10:12] LABS: ALBUMIN 3.8 GM/DL (3.2-4.5)
[2022-08-13 10:13] LABS: CALCIUM 9.1 MG/DL (8.5-10.1)
[2022-08-13 10:14] LABS: TOTAL PROTEIN 6.7 GM/DL (6.4-8.2)
[2022-08-13 10:16] LABS: BILIRUBIN,TOTAL 0.5 MG/DL (0.1-1.0)
[2022-08-13 10:18] LABS: CREATININE SERUM 0.93 MG/DL (0.60-1.30)
--- NOTE | 2022-08-13 10:27 | Diagnostic Imaging Report ---
CLINICAL INDICATIONS: Patient with cough. EXAM: Chest x-ray PA and lateral views. COMPARISON: Chest x-ray dated 10/30/2021. FINDINGS: Lungs/pleura: Lungs are clear. There is no pneumothorax. There is no pleural effusion. Mediastinum: Unremarkable. Pulmonary vasculature: Unremarkable. Heart: Stable cardiomegaly. Again seen postoperative changes to the chest related to CABG with interval valvuloplasty changes. Cardiac pacemaker again seen overlying left chest with leads appearing intact. Bones/extrathoracic soft tissue: There are hypertrophic spurs involving the thoracic spine. There are multiple surgical clips overlying the right axillary region. IMPRESSION: 1: There is no radiographic evidence of acute cardiopulmonary process. There is no lung infiltrate. 2: There is cardiomegaly with no significant pulmonary vascular congestion. 3: There are postop changes to the chest, as described above. Dictated by: Dictated on workstation # [id number]
[2022-08-13 11:55] VITALS: BP 162/67
== END 2022-08-13 11:56 | disposition home or self-care (01) ==
LOC: EDUNIT# 09:38 → ER 09:41
DX: I10 Essential (primary) hypertension (principal); R05.9 Cough, unspecified; Z20.822 Contact with and (suspected) exposure to COVID-19
CPT/HCPCS: 36415; 71046; 80053; 85025; 86141; 87636; 93798

== ENCOUNTER 2022-08-22 09:15 | Outpatient (RCR) | payer MEDICARE | END 2022-08-24 | disposition home or self-care (01) | LOC: CR 09:15 | PROVIDERS: ATTEND Surgery | DX: Z29.8 Encounter for other specified prophylactic measures (principal); I35.0 Nonrheumatic aortic (valve) stenosis | CPT/HCPCS: 93798 ==

== ENCOUNTER → 2022-09-24 | Outpatient (RCR) | payer MEDICARE | END | disposition home or self-care (01) | LOC: CR 08-25 07:27 | PROVIDERS: ATTEND Surgery | DX: Z29.8 Encounter for other specified prophylactic measures (principal); I35.0 Nonrheumatic aortic (valve) stenosis | CPT/HCPCS: 93798 ==

== ENCOUNTER → 2022-10-24 | Outpatient (RCR) | payer MEDICARE | END | disposition home or self-care (01) | LOC: CR 09-26 13:50 | PROVIDERS: ATTEND Surgery | DX: Z29.8 Encounter for other specified prophylactic measures (principal); I35.0 Nonrheumatic aortic (valve) stenosis | CPT/HCPCS: 93798 ==

== ENCOUNTER 2022-11-03 13:07 | Outpatient (RCR) | payer MEDICARE | END 2022-11-24 | disposition home or self-care (01) | LOC: CR 13:07 | PROVIDERS: ATTEND Surgery | DX: Z29.8 Encounter for other specified prophylactic measures (principal); I35.0 Nonrheumatic aortic (valve) stenosis | CPT/HCPCS: 93798 ==

== ENCOUNTER 2022-12-19 13:22 | Outpatient (RCR) | payer MEDICARE | END 2022-12-24 | disposition home or self-care (01) | LOC: CR3 13:22 | PROVIDERS: ATTEND Surgery | DX: Z29.8 Encounter for other specified prophylactic measures (principal); I35.0 Nonrheumatic aortic (valve) stenosis ==

== ENCOUNTER 2023-02-18 13:32 | Outpatient (RCR) | payer MEDICARE | END 2023-02-23 | disposition home or self-care (01) | LOC: CR3 13:32 | PROVIDERS: ATTEND Surgery | DX: Z01.89 Encounter for other specified special examinations (principal) ==

== ENCOUNTER 2023-03-24 17:07 | Outpatient (CLI) | payer MEDICARE ==
[2023-03-24 17:45] VITALS: BP 153/80
[2023-03-24] MEDS ORDERED: NS IV 1000 ML 1,000 ML IV SCH (17:45)
[2023-03-24] MEDS ORDERED: NS IV 1000 ML 1,000 ML ONE (17:59)
[2023-03-24 18:00] VITALS: BP 142/64
[2023-03-24 18:48] LABS: HEMATOCRIT 39 % (35-52); HEMOGLOBIN 12.2 g/dL (11.5-16.0); MEAN CORPUSCULAR HEMOGLOBIN 27 pg (25-34); MEAN CORPUSCULAR HGB CONC 31 g/dL (32-36); MEAN CORPUSCULAR VOLUME 88 fL (80-99); MEAN PLATELET VOLUME 9.6 fL (9.0-12.2); PLATELET COUNT 284 10^3/uL (130-400); WHITE BLOOD COUNT 8.3 10^3/uL (4.3-11.0)
[2023-03-24 18:56] LABS: ALBUMIN 4.1 GM/DL (3.2-4.5); POTASSIUM 3.9 MMOL/L (3.6-5.0)
[2023-03-24 18:57] LABS: CALCIUM 9.5 MG/DL (8.5-10.1)
[2023-03-24 18:59] LABS: TOTAL PROTEIN 7.4 GM/DL (6.4-8.2)
[2023-03-24 19:01] LABS: BILIRUBIN,TOTAL 0.4 MG/DL (0.1-1.0)
[2023-03-24 19:02] LABS: CREATININE SERUM 1.37 MG/DL (0.60-1.30)
[2023-03-24 20:00] VITALS: BP 164/86
== END 2023-03-24 20:26 | disposition home or self-care (01) ==
LOC: ICUo 17:07 → CSD 17:08 → ICUo 20:26
PROVIDERS: ATTEND Family Medicine
DX: E86.0 Dehydration (principal)
CPT/HCPCS: 36415; 80053; 85027